=== PATIENT | male | born 1975 | race Caucasian/White ===

== ENCOUNTER 2016-07-09 07:12 | Emergency (ER) | payer BC ==
[2016-07-09] MEDS ORDERED: ALBUTEROL SO4 0.083% IH SOL 2.5 MG/3 ML VIAL.NEB. NEB ONE (07:19)
[2016-07-09] MEDS ORDERED: IPRATROPIUM BR 0.02% 0.5 MG/2.5 ML VIAL.NEB. NEB ONE (07:19)
[2016-07-09] MEDS ORDERED: NAPROXEN 500 MG TABLET (FP) PO ONE (07:19)
[2016-07-09 07:27] VITALS: BMI 45.6
--- NOTE | 2016-07-09 07:27 | PDOC ---
History of Present Illness - General Chief Complaint: Respiratory Stated Complaint: RIGHT CHEST PAIN COUGH SHORTNESS OF BREATH Time Seen by Provider: 07/09/16 07:19 History Source: Patient Exam Limitations: No Limitations - History of Present Illness Initial Comments: 07/09/16 07:21 41-year-old male with past medical history of asthma presents with right-sided pleuritic chest pain since yesterday night. Patient reports that standing up straight improves the pain but reports that laying any direction worsens it. The patient has been coughing with productive sputum for one and half weeks. The patient had seen in urgent care or days ago where he was given a prescription of steroid pack, albuterol, Nasonex. 2 days ago, patient developed a fever 103 and saw his primary care physician yesterday. Was initiated on azithromycin. Yesterday night, patient was noting to have right sided chest pain. Denies exertional symptoms. Denies fevers or chills. Denies midsternal chest pain. Denies cardiac history. Past History - Past Medical History Allergies/Adverse Reactions: Allergies Allergy/AdvReac Type Severity Reaction Status Date / Time No Known Allergies Allergy Verified 07/09/16 07:14 Home Medications: Ambulatory Orders Albuterol Sulfate [Proair Respiclick] 90 mcg IH DAILY 07/09/16 Azithromycin [Zithromax -] 250 mg PO DAILY 07/09/16 Levofloxacin [Levaquin -] 500 mg PO DAILY #7 tablet 07/09/16 Loratadine [Allergy] 10 mg PO DAILY 07/09/16 Mometasone Furoate [Asmanex 110Mcg -] 1 inh IH DAILY 07/09/16 Mometasone/Formoterol [Dulera 100 Mcg/5 Mcg Inhaler] 2 inh IH BID 07/09/16 Naproxen [Naprosyn -] 500 mg PO BID PRN #20 tablet 07/09/16 Prednisone [Deltasone -] 50 mg PO DAILY 07/09/16 - Psycho/Social/Smoking Cessation Hx Anxiety: No Suicidal Ideation: No Smoking History: Never smoked Have you smoked in the past 12 months: No Review of Systems - Review of Systems Able to Perform ROS?: Yes Comments:: 07/09/16 07:25 GENERAL/CONSTITUTIONAL: No fever, weakness. HEAD, EYES, EARS, NOSE AND THROAT: No change in vision. No ear pain or discharge. No sore throat. CARDIOVASCULAR: +right sided chest pain RESPIRATORY: +cough GASTROINTESTINAL: No abdominal pain, nausea, vomiting, diarrhea, or decreased PO intolerance. GENITOURINARY: No dysuria, frequency, or change in urination. MUSCULOSKELETAL: No joint or muscle swelling or pain. No neck or back pain. SKIN: No rash NEUROLOGIC: No headache, vertigo, loss of consciousness, or change in strength/ sensation. ENDOCRINE: No increased thirst. No abnormal weight change. HEMATOLOGIC/LYMPHATIC: No anemia, easy bleeding, or history of blood clots. ALLERGIC/IMMUNOLOGIC: No hives or skin allergy. *Physical Exam - Physical Exam Comments: 07/09/16 07:26 GENERAL: Awake, alert, and fully oriented, in no acute distress. HEAD: No signs of trauma EYES: PERRLA, EOMI, sclera anicteric, conjunctiva clear ENT: Auricles normal inspection, hearing grossly normal, nares patent, oropharynx clear without exudates. NECK: Normal ROM, supple, no lymphadenopathy, JVD, or masses LUNGS: +small ronchi and expiratory wheeze Right lower base. HEART: Regular rate and rhythm, normal S1 and S2, no murmurs, rubs or gallops ABDOMEN: Soft, nontender, normoactive bowel sounds. No guarding, no rebound. No masses EXTREMITIES: Normal range of motion, no edema. No clubbing or cyanosis. No cords, erythema, or tenderness NEUROLOGICAL: Cranial nerves II through XII grossly intact. Normal speech, normal gait SKIN: Warm, Dry, normal turgor, no rashes or lesions noted. Heart Score/ECG Review #1 ECG reviewed & interpreted by me at: 07:35 07/09/16 07:39 NSR 86, incomplete RBBB, TWI III, normal axis, normal intervals, QTC 454 msec ED Treatment Course - RADIOLOGY Radiology Studies Ordered: Category Date Time Status CHEST PA & LAT [RAD] Stat Radiology 07/09/16 07:19 Ordered Medical Decision Making - Medical Decision Making 07/09/16 07:27 We'll need to rule out pneumonia on right lower lower given the cough, fevers. Unlikely to be acute coronary syndrome. We'll obtain a chest x-ray and EKG. We' ll trial naproxen and duonebs and reassess. The patient is nontoxic appearing and breathing comfortably. The patient had only taken one dose of azithromycin. If just history confirms pneumonia, the patient can continue taking the azithromycin and follow with the primary care physician to reassess. 07/09/16 08:22 Chest xray reviewed by me, pending official radiology read. Right middle lobe PNA. Will change azithromycin to levaquin. Will give a copy of the CD to the patient. CURB 65 scored calculated (assuming BUN < 19 mg/dL) = 0 (and even if BUN > 19, CURB 65 would be = 1). Patient is candidate for outpatient management for PNA. Pt given return precautions including worsening fevers, difficulty breathing, or worsening chest pain. Patient verbalizes understanding and agrees with plan. I discussed the physical exam findings, ancillary test results and final diagnoses with the patient. I answered all of the patient's questions. The patient was satisfied with the care received and felt comfortable with the discharge plan and treatment plan. The patient will call their primary care physician within 24 hours to arrange follow-up and will return to the Emergency Department with any new, persistant or worsening symptoms. 07/09/16 08:31 Official read radiology: Segmental RUL PNA. After speaking with radiologist, has NO granulomas, and appears much more consistent with PNA than TB. Patient has no TB risk factors. I informed the patient to obtain a repeat chest xray to check for resolution. *DC/Admit/Observation/Transfer Diagnosis at time of Disposition: Pneumonia Qualifiers: Pneumonia type: due to unspecified organism Laterality: right Lung location: middle lobe of lung Qualified Code(s): J18.1 - Lobar pneumonia, unspecified organism - Discharge Dispostion Disposition: HOME Condition at time of disposition: Stable Admit: No - Prescriptions Prescriptions: Levofloxacin [Levaquin -] 500 mg PO DAILY #7 tablet Naproxen [Naprosyn -] 500 mg PO BID PRN #20 tablet PRN Reason: Fever/Pain - Patient Instructions Printed Discharge Instructions: DI for Pneumonia -- Adult Additional Instructions: Please discontinue your azithromycin. Please switch to levaquin 500 mg once daily for 1 week for your right sided pneumonia. You may take 500 mg naproxen every 12 hours as needed for pain or fever (Do not take ibuprofen with this as this is a similar type of drug). Drink plenty of fluids and rest. Please call your doctor today and schedule a follow up this week. If you start to develop difficulty breathing, worsening fevers, worsening chest pains, please call your doctor or return to the ER for further evaluation. It is very important that you obtain a repeat chest xray once you complete your antibiotics. Please call your doctor and let him/her know. Give him/her a copy of the CD. - Post Discharge Activity Work/School Note: Back to Work
[2016-07-09] MEDS ORDERED: ALBUTEROL SO4 2.5/IPRATROPIUM 0.5 INH SOL 3 ML VIAL.NEB. NEB ONE (07:30)
[2016-07-09] MEDS ORDERED: NAPROXEN 500 MG TABLET (FP) ONE (07:35)
[2016-07-09] MEDS ORDERED: LEVOFLOXACIN 500 MG TABLET (FP) PO ONE (08:22)
[2016-07-09] MEDS ORDERED: LEVOFLOXACIN 500 MG TABLET (FP) ONE (08:24)
[2016-07-09 08:34] VITALS: BP 127/71; PULSE 86; TEMP 98.6
--- NOTE | 2016-07-09 17:16 | EKG ---
Test Reason : Blood Pressure : / mmHG Vent. Rate : 086 BPM Atrial Rate : 086 BPM P-R Int : 158 ms QRS Dur : 098 ms QT Int : 380 ms P-R-T Axes : 054 -03 005 degrees QTc Int : 454 ms NORMAL SINUS RHYTHM INCOMPLETE RIGHT BUNDLE BRANCH BLOCK BORDERLINE ECG NO PREVIOUS ECGS AVAILABLE Confirmed by ALIRIO ORDONEZ, PATRICIA ([id number]) on 07/09/2016 5:16:03 PM Referred By: BRADY GARCIA Confirmed By:PATRICIA AMEZQUITA MD
== END 2016-07-09 08:41 | disposition home or self-care (01) ==
LOC: FER 07:12
PROC: 3E0F7GC Introduction of Other Therapeutic Substance into Respiratory Tract, Via Natural or Artificial Opening (ICD-10-PCS; principal; 2016-07-09)
DX: J18.1 Lobar pneumonia, unspecified organism (principal); J45.909 Unspecified asthma, uncomplicated
CPT/HCPCS: 71020-TC; 93005; 99282-25

== ENCOUNTER 2018-01-29 08:11 | Emergency (ER) | payer BC ==
[2018-01-29 08:15] VITALS: BMI 46.0
--- NOTE | 2018-01-29 08:28 | PDOC ---
History of Present Illness - General Chief Complaint: Pain, Acute Stated Complaint: LEFT ABD CRAMPS Time Seen by Provider: 01/29/18 08:27 - History of Present Illness Initial Comments: 01/29/18 10:32 Pt presents to the ED complaining of the acute onset of L flank pain at 3:00 this am. Denies fever, nausea or vomiting. States that he felt as though he needed to urinate but was unable to. Pain is constant, described as crampy, "gas like pain" that is moderate in severity. Also describes feeling bloated. Patient urinated and defecated normally immediately prior to this episode. Denies urinary or testicular complaints. No prior history of similar pain. Denies past medical history. 01/29/18 10:36 Past History - Past Medical History Allergies/Adverse Reactions: Allergies Allergy/AdvReac Type Severity Reaction Status Date / Time No Known Allergies Allergy Verified 01/29/18 08:12 Home Medications: Ambulatory Orders NK [No Known Home Medication] 01/29/18 COPD: No Other medical history: FATTY LIVER, SLEEP APNEA - Suicide/Smoking/Psychosocial Hx Smoking History: Never smoked Have you smoked in the past 12 months: No Hx Alcohol Use: Yes Drug/Substance Use Hx: No Substance Use Type: Alcohol Review of Systems - Review of Systems Able to Perform ROS?: Yes Is the patient limited Estonian proficient: No Constitutional: No: Symptoms Reported, See HPI, Chills, Diaphoresis, Fever, Loss of Appetite, Malaise, Night Sweats, Weakness, Weight Stable, Unintentional Wgt. Loss, Unexplained wgt Loss, Other HEENTM: No: Symptoms Reported, See HPI, Eye Pain, Blurred Vision, Tearing, Recent change in vision, Double Vision, Cataracts, Ear Pain, Ocular Prothesis, Ear Discharge, Nose Pain, Nose Congestion, Tinnitus, Nose Bleeding, Hearing Loss , Throat Pain, Throat Swelling, Mouth Pain, Dental Problems, Difficulty Swallowing, Mouth Swelling, Other Respiratory: No: Symptoms reported, See HPI, Cough, Orthopnea, Shortness of Breath, SOB with Exertion, SOB at Rest, Stridor, Wheezing, Productive cough, Hemoptysis, Other Cardiac (ROS): No: Symptoms Reported, See HPI, Chest Pain, Edema, Irregular Heart Rate, Lightheadedness, Palpitations, Syncope, Chest Tightness, Other ABD/GI: Yes: Abdominal Distended (+ crampy l sided lower abdominal pain) : No: Symptoms Reported, See HPI, Burning, Dysuria, Discharge, Frequency, Flank Pain, Hematuria, Incontinence, Pain, Urgency, Testicular Mass, Testicular Swelling, Lesions, Testicular Pain, Other Musculoskeletal: No: Symptoms Reported, See HPI, Back Pain, Gout, Joint Pain, Joint Swelling, Muscle Pain, Muscle Weakness, Neck Pain, Joint Stiffness, Other Integumentary: No: Symptoms Reported, See HPI, Bruising, Change in Color, Change in Hair/Nails, Dryness, Erythema, Flushing, Lesions, Lumps, Pallor, Pruritus, Rash, Sweating, Other Neurological: No: Symptoms reported, See HPI, Headache, Numbness, Paresthesia, Pre-Existing Deficit, Seizure, Tingling, Tremors, Weakness, Unsteady Gait, Ataxia, Dizziness, Other All Other Systems: Reviewed and Negative *Physical Exam - Vital Signs Last Vital Signs Temp Pulse Resp BP Pulse Ox 0/0 L 01/29/18 08:11 - Physical Exam General Appearance: Yes: Nourished, Appropriately Dressed HEENT: positive: Normal Voice Neck: positive: Supple Respiratory/Chest: positive: Lungs Clear, Normal Breath Sounds Cardiovascular: positive: Regular Rhythm, Regular Rate, S1, S2 Gastrointestinal/Abdominal: positive: Soft, Protuberent (obese). negative: Tender, Organomegaly, Guarding, Rebound, Tenderness, Hernia, Mass, Hepatomegaly , Spleenomegaly, Other Male Genitalia: positive: normal genitalia. negative: normal prostate, discharge, testicular tenderness, testicular mass, epididymus tender, inguinal hernia, hernia, CVAT, other Musculoskeletal: positive: Normal Inspection Extremity: positive: Normal Inspection, Normal Range of Motion Integumentary: positive: Normal Color, Dry, Warm Neurologic: positive: dish machine operator II-XII NML intact, Fully Oriented, Alert, Normal Mood/ Affect Moderate Sedation - Procedure Monitoring Vital Signs: Procedure Monitoring Vital Signs Temperature Pulse Rate Respiratory Rate Blood Pressure 0/0 L 01/29/18 08:11 O2 Sat by Pulse Oximetry (%) ED Treatment Course - LABORATORY CBC & Chemistry Diagram: 01/29/18 09:06 01/29/18 09:06 Medical Decision Making - Medical Decision Making 01/29/18 10:38 Pt presents to the Ed complaining of LLQ pain that began at 3 am. Differential included diverticulitis, renal stones, less likely gastroenteritis, unlikely obstruction or other intestinal pathology. UA shows blood--will perform CT scan to look for renal stone. *DC/Admit/Observation/Transfer Diagnosis at time of Disposition: Nephrolithiasis - Discharge Dispostion Disposition: HOME Condition at time of disposition: Good Decision to Admit order: No - Referrals Referrals: Leon Savage MD [Staff Physician] - - Patient Instructions Printed Discharge Instructions: DI for Kidney Stones Additional Instructions: You have a kidney stone. It is small and should pass on its own, but if it does not, you may need follow up with urology. return to the ED for fever, severe pain, nausea and vomiting, other new or worsening symptoms. Call urology for followup if your symptoms have not resolved by Friday. You can take as many as 4 over the counter pills of ibuprofen every 8 hours for pain. - Post Discharge Activity Forms/Work/School Notes: Back to Work
[2018-01-29 08:31] VITALS: BP 148/90; PULSE 58; TEMP 98.4
[2018-01-29 08:35] LABS: URINE APPEARANCE Clear; URINE BILIRUBIN Negative (NEGATIVE); URINE COLOR Yellow; URINE GLUCOSE (UA) Negative (NEGATIVE); URINE KETONE Negative (NEGATIVE); URINE LEUK ESTERASE Negative (NEGATIVE); URINE NITRITE Negative (NEGATIVE); URINE PROTEIN 3+ (NEGATIVE); URINE UROBILINOGEN 0.2 (0.2-1.0)
[2018-01-29] MEDS ORDERED: ACETAMINOPHEN 1000 MG/100 ML VIAL (NON FORMULARY) IVPB ONE (08:49)
[2018-01-29] MEDS ORDERED: ACETAMINOPHEN INJECTION 100 ML IVPB ONE (09:07)
[2018-01-29 09:47] LABS: BASO % 0.2 % (0-2.0); EOS % 0.1 % (0-4.5); HEMATOCRIT 43.3 % (35.4-49); HEMOGLOBIN 14.5 GM/dl (11.7-16.9); LYMPH % 7.7 % (8-40); MCH 29.2 pg (25.7-33.7); MCHC 33.5 g/dl (32.0-35.9); MEAN PLT VOLUME 9.1 fl (7.5-11.1); PLATELET COUNT 256 K/MM3 (134-434); RBC 4.97 M/mm3 (4.00-5.60); RDW 13.3 % (11.9-15.9); WHITE BLOOD COUNT 13.2 K/mm3 (4.0-10.8)
[2018-01-29 09:56] LABS: EPI CELLS FEW /HPF; URINE BACTERIA NONE SEEN /hpf (NEGATIVE); URINE WBC 0-3 (0-2)
[2018-01-29 10:22] LABS: ALBUMIN 3.8 g/dl (3.5-5.0); ALK PHOS 59 U/L (32-92); ANION GAP 8 MMOL/L (8-16); BLOOD UREA NITROGEN 20 mg/dl (7-18); CALCIUM 8.5 mg/dl (8.4-10.2); CHLORIDE 100 mmol/L (98-107); CO2 25 mmol/L (22-28); CREATININE 1.1 mg/dl (0.6-1.3); GLUCOSE,RANDOM 159 mg/dl (74-106); POTASSIUM 4.6 mmol/L (3.5-5.1); SGOT/AST 21 U/L (10-42); SGPT/ALT 27 U/L (10-40); SODIUM 133 mmol/L (136-145); TOT PROT 7.2 g/dl (6.4-8.3)
== END 2018-01-29 11:42 | disposition home or self-care (01) ==
LOC: FER 08:11
PROC: 3E033NZ Introduction of Analgesics, Hypnotics, Sedatives into Peripheral Vein, Percutaneous Approach (ICD-10-PCS; principal; 2018-01-29)
DX: N20.0 Calculus of kidney (principal)
CPT/HCPCS: 36415; 74176-TC; 80053; 81003; 81015; 85025; 99283-25; J0131